=== PATIENT | male | born 1995 | race Caucasian/White ===

== ENCOUNTER 2019-12-04 07:25 | Day surgery (SDC) | payer MEDICAID ==
[2019-12-03 11:03] LABS: BASOPHILS # (AUTO) 0.1 X10'3 (0-0.2); EOSINOPHILS # (AUTO) 0.1 X10'3 (0-0.9); EOSINOPHILS % (AUTO) 1.3 % (0-6); LYMPHOCYTES # (AUTO) 3.6 X10'3 (1.1-4.8); LYMPHOCYTES % (AUTO) 43.7 % (21-51); MEAN CORPUSCULAR HEMOGLOBIN 33.6 PG (27.0-31.0); MEAN CORPUSCULAR HGB CONC 35.1 g/dL (33.0-36.5); MEAN CORPUSCULAR VOLUME 95.7 FL (78-98); MEAN PLATELET VOLUME 9.1 FL (7.4-10.4); MONOCYTES # (AUTO) 0.7 X10'3 (0-0.9); MONOCYTES % (AUTO) 8.7 % (2-12); NEUTROPHILS # (AUTO) 3.7 X10'3 (1.8-7.7); NEUTROPHILS % (AUTO) 45.3 % (42-75); PRE OP HEMATOCRIT 38.8 % (42.0-52.0); PRE OP HEMOGLOBIN 13.6 g/dL (14.0-17.9); PRE OP PLATELET COUNT 170 X10'3 (140-440); RED BLOOD COUNT 4.05 X10'6 (4.70-6.10); RED CELL DISTRIBUTION WIDTH 12.1 % (11.5-14.5)
[2019-12-03 11:03] LABS: CLARITY,URINE CLEAR (Clear); COLOR,URINE YELLOW (Yellow); GLUCOSE, URINE NEGATIVE (Neg); KETONES,URINE TRACE mg/dl (Neg); LEUKOCYTE ESTERASE ,URINE NEGATIVE (Neg); NITRITES, URINE NEGATIVE (Neg); OCCULT BLOOD,URINE NEGATIVE (Neg); PROTEIN,URINE NEGATIVE (Neg); UROBILINOGEN,URINE 0.2 E.U/dL (0.2-1.0)
[2019-12-03 11:05] LABS: UA COLLECTION TYPE CLN CATCH MIDSTREAM
[2019-12-03 14:49] LABS: ALBUMIN 3.6 G/DL (3.4-5.0); ALBUMIN/GLOBULIN RATIO 1.1 (1.1-1.5); ALKALINE PHOSPHATASE 51 IU/L (46-116); BLOOD UREA NITROGEN 12 MG/DL (7-18); BUN/CREATININE RATIO 12.2 (5.4-32.0); CALCIUM 8.3 MG/DL (8.5-10.1); CHLORIDE 106 MMOL/L (99-107); CREATININE 0.98 MG/DL (0.60-1.10); PRE OP ALT 42 U/L (30-65); PRE OP ANION GAP 11 (8-16); PRE OP AST 17 U/L (10-37); PRE OP BILIRUB, TOTAL 0.3 MG/DL (0.0-1.0); PRE OP GLUCOSE 91 MG/DL (70-104); PRE OP POTASSIUM 3.7 MMOL/L (3.4-5.1); PRE OP SODIUM 142 MMOL/L (135-145); TOTAL CARBON DIOXIDE 25.3 MMOL/L (24-32); TOTAL PROTEIN 6.8 G/DL (6.4-8.2); eGFR > 90 ML/MIN
[2019-12-04] VITALS (19 sets, daily range): BP systolic 101–155; BP diastolic 60–94
[~2019-12-04] VITALS: Ht 180.3 cm; Wt 77.9 kg
[~2019-12-04 07:25] MED LIST: EST1T PO; HYDR-3965 PO; IBUP-1985 PO; ONDA4TAB6 PO; SPIR100T5 PO
[2019-12-04] MEDS ORDERED: diazepam 5mg tablet PO ONE ×2 (08:25→08:50)
[2019-12-04] MEDS ORDERED: LIDOcaine 1% (10mg/ml) 2ml vial ONE (08:36)
[2019-12-04] MEDS ORDERED: famotidine 10mg tablet PO ONE (08:50)
[2019-12-04] MEDS ORDERED: albuterol 2.5 MG/3 ML nebule NEB PRN (08:50)
[2019-12-04] MEDS ORDERED: cefazolin/dext.iso 2gm/100ml 100 ML IV ONE (09:00)
[2019-12-04] MEDS ORDERED: ceFOXitin 2 GM ADDvantage bag 100 ML IV ONE (09:15)
[2019-12-04] MEDS ORDERED: ceFAZolin 1000mg inj ONE (10:07)
[2019-12-04] MEDS ORDERED: BUPIVAcaine/PF 2.5 mg/ml (0.25%) 30ml vial ONE (10:07)
[2019-12-04] MEDS ORDERED: sevoflurane 250ml liquid IH ONE (10:51)
[2019-12-04] MEDS ORDERED: fentaNYL/PF 50MCG/1 ML 2ML syringe ONE (10:57)
[2019-12-04] MEDS ORDERED: midazolam 2 mg/2 ml injection ONE (10:57)
[2019-12-04] MEDS ORDERED: rocuronium 10mg/ml inj IV ONE (10:58)
[2019-12-04] MEDS ORDERED: propofol inj 20 ML IV ONE (10:58)
[2019-12-04] MEDS ORDERED: proCHLORperazine 10 MG/2 ml inj IV PRN (11:35)
[2019-12-04] MEDS ORDERED: meperidine/PF 25mg/ml syringe IV PRN ×2 (11:35)
[2019-12-04] MEDS ORDERED: morphine 4 MG/ML inj SYRINge IV PRN (11:35)
[2019-12-04] MEDS ORDERED: ondansetron/PF 4mg/2ml inj IV PRN (11:35)
[2019-12-04] MEDS ORDERED: ringers solution, lacted 1,000 ML IV SCH (11:35)
[2019-12-04] MEDS ORDERED: neostigmine methylsulfate 1 MG/ML 10ml vial ONE (11:54)
[2019-12-04] MEDS ORDERED: glycopyrrolate 0.2mg/ml inj ONE (11:54)
--- NOTE | 2019-12-04 12:06 | NUR ---
Received from OR via [facility], accompanied by Anesthesiologist DR LOVELL and report given by Anesthesiologist. PT VERY RESTLESS, NOT ANSWERING QUESTIONS, THRASHING AROUND IN BED, 25 MG DEMEROL GIVEN W/IMPROVEMENT. ABDOMEN W/3 LAP SITES W/BANDAIDS CDI. Addendum: 12/04/19 at 1224 by Homa Roque RN Amended: Links added.
[2019-12-04] MEDS: meperidine/PF 25mg/ml syringe IV PRN ×3 (12:13→12:50)
[2019-12-04] MEDS ORDERED: ketorolac trometh. 30mg/ml inj. IV ONE (12:55)
[2019-12-04] MEDS: morphine 4 MG/ML inj SYRINge IV PRN ×2 (13:03→13:12)
[2019-12-04] MEDS ORDERED: HYDROcodone/acetaminophen 10/325mg tab PO ONE (14:30)
--- NOTE | 2019-12-04 15:16 | NUR ---
D/C INSTRUCTIONS GIVEN AND GONE OVER W/PT AND PTS FAMILY, BOTH VERBALIZE UNDERSTANDING, PT D/CD TO HOME VIA W/C TO PRIVATE VEHICLE W/O INCIDENT. Addendum: 12/04/19 at 1544 by Homa Roque RN Amended: Links added.
== END 2019-12-04 15:16 | disposition home or self-care (01) ==
LOC: PAS 07:25
PROVIDERS: ATTEND Surgery
DX: K80.10 Calculus of gallbladder with chronic cholecystitis without obstruction (principal); F31.9 Bipolar disorder, unspecified; F41.1 Generalized anxiety disorder; F17.210 Nicotine dependence, cigarettes, uncomplicated; Z72.89 Other problems related to lifestyle; Z79.899 Other long term (current) drug therapy; F90.9 Attention-deficit hyperactivity disorder, unspecified type
CPT/HCPCS: 36415; 47562; 80053; 81003; 82948; 85025; 93005; J0690; J0694; J1885; J2001; J2175; J2250; J2270; J2704; J2710; J3010; J3490; J7120; A4215; A4618; A7000